=== PATIENT | female | born 1970 | race Caucasian/White ===

== ENCOUNTER 2020-02-21 21:45 | Emergency (ER) | payer OTHER ==
[~2020-02-21 21:45] MED LIST: FLAGYL500 MG PO; NYSTATIN100000 UNI PO
[2020-02-21 22:29] LABS: HEMOGLOBIN 13.5 gm/dl (12.3-15.3); RED BLOOD COUNT 4.7 M/UL (4.00-5.10); WHITE BLOOD COUNT 7.3 K/UL (4.5-11.0)
[2020-02-21 22:42] LABS: BUN/CREATININE RATIO 14 (0-10)
[2020-02-21] MEDS ORDERED: DECADRON6 MG PO (23:32)
[2020-02-21] MEDS ORDERED: DOXYCYCLINE HY100 MG PO (23:32)
== END 2020-02-21 23:45 | disposition home or self-care (01) ==
LOC: ER1 21:45
PROVIDERS: Emergency Medicine
DX: U07.1 COVID-19 (principal); Z87.09 Personal history of other diseases of the respiratory system; Z88.8 Allergy status to other drugs, medicaments and biological substances
CPT/HCPCS: 71045; 80053; 82550; 82553; 83874; 84484; 85025; 93005; 96374; 99285; J1100; U0002

== ENCOUNTER → 2020-09-06 | Outpatient (CLI) | payer OTHER ==
[~2020-09-06] MED LIST changes: +DECADRON6 MG PO; +DOXYCYCLINE HY100 MG PO
== END ==
LOC: KOH-I 08-31 09:45
DX: R74.01 Elevation of levels of liver transaminase levels (principal); K76.0 Fatty (change of) liver, not elsewhere classified
CPT/HCPCS: 76705

== ENCOUNTER 2020-12-15 13:11 | Emergency (ER) | payer OTHER ==
[2020-12-15 14:17] LABS: HEMOGLOBIN 15.1 gm/dl (12.3-15.3); RED BLOOD COUNT 4.83 M/UL (4.00-5.10); WHITE BLOOD COUNT 11.9 K/UL (4.5-11.0)
[2020-12-15 14:44] LABS: BUN/CREATININE RATIO 11 (0-10)
== END 2020-12-15 17:12 | disposition home or self-care (01) ==
LOC: ER1 13:11
DX: K29.50 Unspecified chronic gastritis without bleeding (principal); K21.9 Gastro-esophageal reflux disease without esophagitis
CPT/HCPCS: 80053; 81001; 82150; 82550; 82553; 83605; 83690; 83874; 84484; 85025; 87086; 93005; 96374; 96375; 99284; C9113; J1885; Q9967

== ENCOUNTER 2020-12-24 12:26 | Emergency (ER) | payer OTHER ==
[2020-12-24 13:23] LABS: BORDETELLA PARAPERTUSSIS Not Detected (Not Detectd); BORDETELLA PERTUSSIS Not Detected (Not Detectd); CHLAMYDIA PNEUMONIAE Not Detected (Not Detectd); CORONAVIRUS HKU1 Not Detected (Not Detectd); CORONAVIRUS NL63 Not Detected (Not Detectd); CORONAVIRUS OC43 Not Detected (Not Detectd); CORONOAVIRUS 229E Not Detected (Not Detectd); HUMAN METAPNEUMOVIRUS Not Detected (Not Detectd); INFLUENZA A Not Detected (Not Detectd); INFLUENZA B Not Detected (Not Detectd); MYCOPLASMA PNEUMONIAE Not Detected (Not Detectd); PARAINFLUENZA VIRUS 1 Not Detected (Not Detectd); PARAINFLUENZA VIRUS 2 Not Detected (Not Detectd); PARAINFLUENZA VIRUS 3 Not Detected (Not Detectd); PARAINFLUENZA VIRUS 4 Not Detected (Not Detectd); RESPIRATORY SYNCYTIAL VIRUS Not Detected (Not Detectd)
[2020-12-24 13:51] LABS: HEMOGLOBIN 14.9 gm/dl (12.3-15.3); RED BLOOD COUNT 4.72 M/UL (4.00-5.10); WHITE BLOOD COUNT 19.6 K/UL (4.5-11.0)
[2020-12-24 14:14] LABS: BUN/CREATININE RATIO 16 (0-10)
[2020-12-24 14:28] LABS: HUMAN RHINOVIRUS/ENTEROVIRUS DETECTED (Not Detectd); SARS-CoV-2 NOT DETECTED (Not Detectd)
[2020-12-24] MEDS ORDERED: BROMFED DM COU473 ML PO (14:45)
== END 2020-12-24 15:03 | disposition home or self-care (01) ==
LOC: ER1 12:26
PROVIDERS: Nurse Practitioner
DX: J20.6 Acute bronchitis due to rhinovirus (principal); Z90.89 Acquired absence of other organs; Z88.8 Allergy status to other drugs, medicaments and biological substances; Z20.822 Contact with and (suspected) exposure to COVID-19
CPT/HCPCS: 71045; 80053; 81001; 85025; 87081; 87633; 87880; 99283; J7030

== ENCOUNTER 2020-12-27 04:45 | Emergency (ER) | payer OTHER ==
[~2020-12-27 04:45] MED LIST changes: +BROMFED DM COU473 ML PO
[2020-12-27] MEDS ORDERED: MEDROL DOSEPAK 24 MG PO (06:35)
== END 2020-12-27 06:40 | disposition home or self-care (01) ==
LOC: ER1 04:45
DX: M35.00 Sjogren syndrome, unspecified (principal); K11.20 Sialoadenitis, unspecified
CPT/HCPCS: 94664; 96372; 99283; J1100

== ENCOUNTER 2021-01-09 13:16 | Emergency (ER) | payer OTHER ==
[~2021-01-09 13:16] MED LIST changes: +MEDROL DOSEPAK 24 MG PO
== END 2021-01-09 16:33 | disposition home or self-care (01) ==
LOC: ER1 13:16
DX: J12.9 Viral pneumonia, unspecified (principal); Z87.891 Personal history of nicotine dependence; Z90.49 Acquired absence of other specified parts of digestive tract
CPT/HCPCS: 99283

== ENCOUNTER → 2021-01-17 | Outpatient (CLI) | payer OTHER | LOC: KOH-I 14:49 | DX: J18.9 Pneumonia, unspecified organism (principal) | CPT/HCPCS: 71046 ==

== ENCOUNTER 2021-03-25 18:20 | Emergency (ER) | payer OTHER ==
[2021-03-25 19:58] LABS: HEMOGLOBIN 14.8 gm/dl (12.3-15.3); RED BLOOD COUNT 4.84 M/UL (4.00-5.10); WHITE BLOOD COUNT 13.3 K/UL (4.5-11.0)
[2021-03-25 20:20] LABS: BUN/CREATININE RATIO 17 (0-10)
[2021-03-25 21:28] LABS: BUN/CREATININE RATIO 17 (0-10)
== END 2021-03-25 22:25 | disposition home or self-care (01) ==
LOC: ER1 18:20
PROVIDERS: Family Medicine
DX: M77.11 Lateral epicondylitis, right elbow (principal); M35.00 Sjogren syndrome, unspecified; Z79.899 Other long term (current) drug therapy
CPT/HCPCS: 73080; 80048; 80053; 85025; 85652; 86140; 99283

== ENCOUNTER → 2021-05-23 | Outpatient (CLI) | payer OTHER | LOC: KOH-I 11:08 | DX: M25.521 Pain in right elbow (principal); M77.11 Lateral epicondylitis, right elbow | CPT/HCPCS: 73221 ==

== ENCOUNTER 2021-08-21 06:28 | Emergency (ER) | payer OTHER ==
[2021-08-21] MEDS ORDERED: CYCLOBENZAPRINE10 MG PO (06:44)
[2021-08-21] MEDS ORDERED: IBUPROFEN600 MG PO (06:44)
== END 2021-08-21 07:23 | disposition home or self-care (01) ==
LOC: ER1 06:28
DX: S89.91XA Unspecified injury of right lower leg, initial encounter (principal); K21.9 Gastro-esophageal reflux disease without esophagitis; Z88.8 Allergy status to other drugs, medicaments and biological substances; W01.0XXA Fall on same level from slipping, tripping and stumbling without subsequent striking against object, initial encounter; Y92.009 Unspecified place in unspecified non-institutional (private) residence as the place of occurrence of the external cause
CPT/HCPCS: 73564; 96372; 99283; J1885

== ENCOUNTER → 2021-08-31 | Outpatient (CLI) | payer OTHER ==
[~2021-08-31] MED LIST changes: +CYCLOBENZAPRINE10 MG PO; +IBUPROFEN600 MG PO
== END ==
LOC: KOH-I 16:38
DX: J20.9 Acute bronchitis, unspecified (principal); R53.83 Other fatigue
CPT/HCPCS: 71046